=== PATIENT | male | born 1990 | race Hispanic/Latino ===

== ENCOUNTER 2017-04-16 22:02 | Emergency (ER) | payer SELFPAY ==
[~2017-04-16 22:02] MED LIST: FLEXERIL10 MG PO; MOTRIN600 MG PO
[2017-04-16 22:24] VITALS: BP 133/79
== END 2017-04-17 00:13 | disposition admitted as inpatient to this hospital (09) ==
LOC: ERH 22:02
DX: E16.2 Hypoglycemia, unspecified (principal)